=== PATIENT | male | born 1985 | race Caucasian/White ===

== ENCOUNTER 2018-01-29 22:18 | Emergency (ER) | payer OTHER ==
[~2018-01-29] VITALS: Ht 167.6 cm; Wt 89.3 kg
[~2018-01-29 22:18] MED LIST: ALBU8.5H8 IH; GUAI120015 PO; METO-292 PO; POTA20TA19 PO; PSEU-259 PO
[2018-01-29 22:20] VITALS: BP 128/62
[2018-01-29] MEDS ORDERED: LORazepam 2 mg/ml vial IM ONE (22:45)
== END 2018-01-29 23:15 | disposition home or self-care (01) ==
LOC: ER 22:18
DX: F41.9 Anxiety disorder, unspecified (principal); I10 Essential (primary) hypertension; F32.9 Major depressive disorder, single episode, unspecified; K21.9 Gastro-esophageal reflux disease without esophagitis; Z88.5 Allergy status to narcotic agent
CPT/HCPCS: 96372; 99284; J2060

== ENCOUNTER 2018-02-10 17:29 | Emergency (ER) | payer OTHER ==
[~2018-02-10] VITALS: Ht 177.8 cm; Wt 90.0 kg
[2018-02-10 17:31] VITALS: BP 148/78
[2018-02-10] MEDS ORDERED: LORazepam 2 mg/ml vial IM ONE (17:40)
== END 2018-02-10 18:29 | disposition home or self-care (01) ==
LOC: ER 17:29
DX: F41.9 Anxiety disorder, unspecified (principal); I10 Essential (primary) hypertension; K21.9 Gastro-esophageal reflux disease without esophagitis; F17.200 Nicotine dependence, unspecified, uncomplicated; F12.10 Cannabis abuse, uncomplicated; F41.0 Panic disorder [episodic paroxysmal anxiety]; F32.9 Major depressive disorder, single episode, unspecified; Z88.5 Allergy status to narcotic agent
CPT/HCPCS: 93005; 96372; 99284; J2060

== ENCOUNTER 2018-04-10 21:47 | Emergency (ER) | payer OTHER ==
[~2018-04-10] VITALS: Ht 177.8 cm; Wt 87.2 kg
[2018-04-10 21:52] VITALS: BP 135/84
== END 2018-04-11 00:02 | disposition home or self-care (01) ==
LOC: ER 21:47
DX: F41.9 Anxiety disorder, unspecified (principal); F32.9 Major depressive disorder, single episode, unspecified; I10 Essential (primary) hypertension; K21.9 Gastro-esophageal reflux disease without esophagitis; F12.10 Cannabis abuse, uncomplicated; Z88.5 Allergy status to narcotic agent; Z79.899 Other long term (current) drug therapy
CPT/HCPCS: 99284

== ENCOUNTER 2018-08-03 05:07 | Emergency (ER) | payer OTHER ==
[~2018-08-03] VITALS: Ht 177.8 cm; Wt 85.5 kg
[2018-08-03 05:12] VITALS: BP 127/72
[2018-08-03] MEDS ORDERED: ondansetron 4mg rapidly disintigrating tab PO ONE (05:25)
[2018-08-03] MEDS ORDERED: ONDA4TAB9 PO (05:25)
[2018-08-03] MEDS ORDERED: HYDROcodone/acetaminophen 10/325mg tab PO ONE (05:25)
[2018-08-03] MEDS ORDERED: HYDR-565 PO (05:25)
== END 2018-08-03 05:43 | disposition home or self-care (01) ==
LOC: ER 05:07
DX: K03.81 Cracked tooth (principal); K08.89 Other specified disorders of teeth and supporting structures; I10 Essential (primary) hypertension; K21.9 Gastro-esophageal reflux disease without esophagitis; F12.90 Cannabis use, unspecified, uncomplicated; Z88.6 Allergy status to analgesic agent
CPT/HCPCS: 99283

== ENCOUNTER 2018-08-03 19:37 | Emergency (ER) | payer OTHER ==
[~2018-08-03] VITALS: Ht 177.8 cm; Wt 85.9 kg
[~2018-08-03 19:37] MED LIST changes: +HYDR-565 PO; +ONDA4TAB9 PO
[2018-08-03 19:43] VITALS: BP 123/83
[2018-08-03] MEDS ORDERED: LORazepam 2 mg/ml vial IM ONE (20:20)
== END 2018-08-03 20:43 | disposition home or self-care (01) ==
LOC: ER 19:37
DX: F41.9 Anxiety disorder, unspecified (principal); K08.89 Other specified disorders of teeth and supporting structures; I10 Essential (primary) hypertension; K21.9 Gastro-esophageal reflux disease without esophagitis; F32.9 Major depressive disorder, single episode, unspecified; F12.90 Cannabis use, unspecified, uncomplicated; Z88.5 Allergy status to narcotic agent; Z79.899 Other long term (current) drug therapy
CPT/HCPCS: 96372; 99284; J2060

== ENCOUNTER 2018-09-28 17:12 | Emergency (ER) | payer OTHER ==
[~2018-09-28] VITALS: Ht 177.8 cm; Wt 87.7 kg
[~2018-09-28 17:12] MED LIST changes: +ALBU18HF2 INH; +BENZ-16 PO; -HYDR-565 PO; -ONDA4TAB9 PO
[2018-09-28 17:29] VITALS: BP 124/67
== END 2018-09-28 17:58 | disposition home or self-care (01) ==
LOC: ER 17:13
DX: F41.9 Anxiety disorder, unspecified (principal); F17.200 Nicotine dependence, unspecified, uncomplicated; I10 Essential (primary) hypertension; K21.9 Gastro-esophageal reflux disease without esophagitis; F12.90 Cannabis use, unspecified, uncomplicated; Z88.6 Allergy status to analgesic agent
CPT/HCPCS: 99284

== ENCOUNTER 2018-09-30 20:07 | Emergency (ER) | payer OTHER ==
[~2018-09-30] VITALS: Ht 177.8 cm; Wt 87.7 kg
[2018-09-30] MEDS ORDERED: LORazepam 2 mg/ml vial IM ONE (21:50)
[2018-09-30 22:06] VITALS: BP 128/76
== END 2018-09-30 22:07 | disposition home or self-care (01) ==
LOC: ER 20:08
DX: F41.9 Anxiety disorder, unspecified (principal); I10 Essential (primary) hypertension; K21.9 Gastro-esophageal reflux disease without esophagitis; G89.29 Other chronic pain; F32.9 Major depressive disorder, single episode, unspecified; F12.90 Cannabis use, unspecified, uncomplicated; Z88.5 Allergy status to narcotic agent; Z88.1 Allergy status to other antibiotic agents; Z79.899 Other long term (current) drug therapy
CPT/HCPCS: 96372; 99284; J2060

== ENCOUNTER 2018-10-25 22:10 | Emergency (ER) | payer OTHER ==
[~2018-10-25] VITALS: Ht 177.8 cm; Wt 87.0 kg
[~2018-10-25 22:10] MED LIST changes: -BENZ-16 PO
[2018-10-25 22:12] VITALS: BP 143/86
[2018-10-25] MEDS ORDERED: LORazepam 2 mg/ml vial IM ONE (22:55)
== END 2018-10-25 23:28 | disposition home or self-care (01) ==
LOC: ER 22:11
DX: F41.0 Panic disorder [episodic paroxysmal anxiety] (principal); F41.9 Anxiety disorder, unspecified; F32.9 Major depressive disorder, single episode, unspecified; I10 Essential (primary) hypertension; K21.9 Gastro-esophageal reflux disease without esophagitis; G89.29 Other chronic pain; F12.90 Cannabis use, unspecified, uncomplicated; Z88.1 Allergy status to other antibiotic agents; Z88.5 Allergy status to narcotic agent; Z79.899 Other long term (current) drug therapy
CPT/HCPCS: 96372; 99284; J2060

== ENCOUNTER 2018-10-30 22:06 | Emergency (ER) | payer OTHER ==
[~2018-10-30] VITALS: Ht 177.8 cm; Wt 87.2 kg
[2018-10-30 22:14] VITALS: BP 127/81
[2018-10-30] MEDS ORDERED: LORazepam 2 mg/ml vial IM ONE (23:30)
== END 2018-10-30 23:44 | disposition home or self-care (01) ==
LOC: ER 22:06
DX: F41.9 Anxiety disorder, unspecified (principal); I10 Essential (primary) hypertension; K21.9 Gastro-esophageal reflux disease without esophagitis; G89.29 Other chronic pain; F32.9 Major depressive disorder, single episode, unspecified; F12.90 Cannabis use, unspecified, uncomplicated; Z88.5 Allergy status to narcotic agent; Z88.8 Allergy status to other drugs, medicaments and biological substances; Z79.899 Other long term (current) drug therapy
CPT/HCPCS: 96372; 99284; J2060

== ENCOUNTER 2018-11-02 20:57 | Emergency (ER) | payer OTHER ==
[~2018-11-02] VITALS: Ht 177.8 cm; Wt 87.0 kg
[2018-11-02] MEDS ORDERED: haloperidol lactate 5mg/ml inj IM ONE (22:35)
[2018-11-02] MEDS ORDERED: LORazepam 2 mg/ml vial IM ONE (23:20)
[2018-11-02] MEDS ORDERED: diphenhydrAMINE 25mg capsule PO ONE (23:25)
[2018-11-03 00:02] VITALS: BP 120/71
== END 2018-11-03 00:04 | disposition home or self-care (01) ==
LOC: ER 20:58
DX: F41.9 Anxiety disorder, unspecified (principal); F43.10 Post-traumatic stress disorder, unspecified; I10 Essential (primary) hypertension; K21.9 Gastro-esophageal reflux disease without esophagitis; G89.29 Other chronic pain; F32.9 Major depressive disorder, single episode, unspecified; F12.90 Cannabis use, unspecified, uncomplicated; Z88.3 Allergy status to other anti-infective agents; Z88.5 Allergy status to narcotic agent
CPT/HCPCS: 96372; 99284; J1630; J2060; Q0163

== ENCOUNTER 2018-12-19 01:31 | Emergency (ER) | payer OTHER ==
[~2018-12-19] VITALS: Ht 177.8 cm; Wt 83.0 kg
[2018-12-19 01:35] VITALS: BP 122/80
== END 2018-12-19 03:01 | disposition left against medical advice (07) ==
LOC: ER 01:32
DX: F41.9 Anxiety disorder, unspecified (principal); Z53.21 Procedure and treatment not carried out due to patient leaving prior to being seen by health care provider

== ENCOUNTER 2019-01-29 09:33 | Emergency (ER) | payer OTHER ==
[~2019-01-29] VITALS: Ht 177.8 cm; Wt 87.7 kg
[2019-01-29 11:22] VITALS: BP 115/71
== END 2019-01-29 11:06 | disposition home or self-care (01) ==
LOC: ER 09:33
DX: R07.89 Other chest pain (principal); I10 Essential (primary) hypertension; K21.9 Gastro-esophageal reflux disease without esophagitis; G89.29 Other chronic pain; F12.90 Cannabis use, unspecified, uncomplicated; Z88.6 Allergy status to analgesic agent; Z88.1 Allergy status to other antibiotic agents
CPT/HCPCS: 71045; 93005; 99283; 99284

== ENCOUNTER 2019-03-11 08:01 | Emergency (ER) | payer OTHER ==
[~2019-03-11] VITALS: Ht 177.8 cm; Wt 87.3 kg
--- NOTE | 2019-03-11 08:20 | NUR ---
Brought back to Bed 23 from Triage due to Anxiety. Seen by Willie REAL, who has cared for the patient in the past. Ativan 1 mg IM ordered along with 1 mg PO. Administered as ordered. Patient uncooperative with the admission process. Stated "I can't do this, answer all these questions."
[2019-03-11] MEDS ORDERED: LORazepam 1 MG tablet PO ONE (08:50)
[2019-03-11] MEDS ORDERED: LORazepam 2 mg/ml vial IM ONE (08:50)
--- NOTE | 2019-03-11 09:40 | NUR ---
Patient discharged to home after medication administration. Stated he felt better. [facility]
[2019-03-11 09:52] VITALS: BP 116/72
== END 2019-03-11 09:40 | disposition home or self-care (01) ==
LOC: ER 08:01
DX: F41.9 Anxiety disorder, unspecified (principal); F32.9 Major depressive disorder, single episode, unspecified; I10 Essential (primary) hypertension; K21.9 Gastro-esophageal reflux disease without esophagitis; G89.29 Other chronic pain; F12.90 Cannabis use, unspecified, uncomplicated; Z88.6 Allergy status to analgesic agent; Z88.1 Allergy status to other antibiotic agents
CPT/HCPCS: 96372; 99284; J2060

== ENCOUNTER 2019-05-25 19:37 | Emergency (ER) | payer OTHER ==
[~2019-05-25] VITALS: Ht 177.8 cm; Wt 87.0 kg
[2019-05-25] MEDS ORDERED: famotidine 20mg tablet PO ONE (20:15)
[2019-05-25] MEDS ORDERED: mag hydrox/Alum hydrox/simeth 30ml oral suspension PO ONE (20:15)
[2019-05-25] MEDS ORDERED: LIDOcaine Viscous 15ml cup PO ONE (20:15)
--- NOTE | 2019-05-25 20:43 | NUR ---
Patient resting comfortably on [facility], just back from CT.
--- NOTE | 2019-05-25 21:19 | NUR ---
Still resting comfortably on gurney, pending CT results.
[2019-05-25 21:37] VITALS: BP 116/77
== END 2019-05-25 21:38 | disposition home or self-care (01) ==
LOC: ER 19:38
DX: R10.84 Generalized abdominal pain (principal); I10 Essential (primary) hypertension; K21.9 Gastro-esophageal reflux disease without esophagitis; G89.29 Other chronic pain; F41.9 Anxiety disorder, unspecified; F32.9 Major depressive disorder, single episode, unspecified; F12.90 Cannabis use, unspecified, uncomplicated; Z88.5 Allergy status to narcotic agent; Z88.1 Allergy status to other antibiotic agents; Z79.899 Other long term (current) drug therapy
CPT/HCPCS: 74176; 93005; 99284

== ENCOUNTER 2019-07-18 00:24 | Emergency (ER) | payer OTHER ==
[~2019-07-18] VITALS: Ht 177.8 cm; Wt 87.7 kg
[2019-07-18 00:34] VITALS: BP 114/79
== END 2019-07-18 02:53 | disposition home or self-care (01) ==
LOC: ER 00:26
DX: S06.0X0A Concussion without loss of consciousness, initial encounter (principal); S01.81XA Laceration without foreign body of other part of head, initial encounter; R47.81 Slurred speech; I10 Essential (primary) hypertension; K21.9 Gastro-esophageal reflux disease without esophagitis; G89.29 Other chronic pain; F41.9 Anxiety disorder, unspecified; F32.9 Major depressive disorder, single episode, unspecified; F12.90 Cannabis use, unspecified, uncomplicated; Z88.1 Allergy status to other antibiotic agents; Z88.6 Allergy status to analgesic agent; Z79.899 Other long term (current) drug therapy; Z87.891 Personal history of nicotine dependence; W22.8XXA Striking against or struck by other objects, initial encounter; Y93.89 Activity, other specified; Y92.89 Other specified places as the place of occurrence of the external cause; Y99.8 Other external cause status
CPT/HCPCS: 99281

== ENCOUNTER 2019-11-19 00:30 | Emergency (ER) | payer OTHER ==
[~2019-11-19] VITALS: Ht 177.8 cm; Wt 87.7 kg
[2019-11-19 01:55] VITALS: BP 127/66
== END 2019-11-19 01:57 | disposition home or self-care (01) ==
LOC: ER 00:31
DX: F41.9 Anxiety disorder, unspecified (principal); I10 Essential (primary) hypertension; K21.9 Gastro-esophageal reflux disease without esophagitis; G89.29 Other chronic pain; F12.90 Cannabis use, unspecified, uncomplicated; F10.99 Alcohol use, unspecified with unspecified alcohol-induced disorder; Z88.1 Allergy status to other antibiotic agents; Z88.5 Allergy status to narcotic agent; Z79.899 Other long term (current) drug therapy; Y90.9 Presence of alcohol in blood, level not specified
CPT/HCPCS: 93005; 99284

== ENCOUNTER 2019-11-29 20:13 | Emergency (ER) | payer OTHER ==
[~2019-11-29] VITALS: Ht 177.8 cm; Wt 87.4 kg
--- NOTE | 2019-11-29 20:56 | NUR ---
Dr. Walker is with the patient at this time.
[2019-11-29] MEDS ORDERED: proparacaine 0.5% ophthalmic drops 15ml EACHEYE ONE (21:00)
[2019-11-29] MEDS ORDERED: erythromycin ophthalmic ointment 1gm tube LEFTEYE ONE (21:25)
[2019-11-29] MEDS ORDERED: TETanus/Pertussis (Acell)/Diphther VAC/PF (Tdap-Adult) 0.5ml syringe IMVAC ONE (21:25)
[2019-11-29 21:57] VITALS: BP 124/78
== END 2019-11-29 21:58 | disposition home or self-care (01) ==
LOC: ER 20:14
DX: S05.02XA Injury of conjunctiva and corneal abrasion without foreign body, left eye, initial encounter (principal); I10 Essential (primary) hypertension; K21.9 Gastro-esophageal reflux disease without esophagitis; G89.29 Other chronic pain; F12.90 Cannabis use, unspecified, uncomplicated; Z88.3 Allergy status to other anti-infective agents; Z88.5 Allergy status to narcotic agent; X58.XXXA Exposure to other specified factors, initial encounter; Y93.89 Activity, other specified; Y92.89 Other specified places as the place of occurrence of the external cause; Y99.9 Unspecified external cause status
CPT/HCPCS: 90471; 90715; 99283

== ENCOUNTER 2020-07-22 16:08 | Emergency (ER) | payer OTHER ==
[~2020-07-22] VITALS: Ht 177.8 cm; Wt 88.0 kg
[2020-07-22] MEDS ORDERED: LORazepam 2 mg/ml vial IM ONE (17:45)
[2020-07-22 18:57] VITALS: BP 110/70
== END 2020-07-22 18:58 | disposition home or self-care (01) ==
LOC: ER 16:09
DX: F41.0 Panic disorder [episodic paroxysmal anxiety] (principal); F43.10 Post-traumatic stress disorder, unspecified; R00.1 Bradycardia, unspecified; I10 Essential (primary) hypertension; K21.9 Gastro-esophageal reflux disease without esophagitis; G89.29 Other chronic pain; F32.9 Major depressive disorder, single episode, unspecified; F12.90 Cannabis use, unspecified, uncomplicated; Z87.891 Personal history of nicotine dependence; Z88.5 Allergy status to narcotic agent; Z88.1 Allergy status to other antibiotic agents; Z79.899 Other long term (current) drug therapy
CPT/HCPCS: 96372; 99285; J2060

== ENCOUNTER 2020-12-25 22:12 | Emergency (ER) | payer OTHER ==
[~2020-12-25] VITALS: Ht 177.8 cm; Wt 87.7 kg
[2020-12-25] MEDS ORDERED: LORazepam 2 mg/ml vial IM ONE (23:20)
[2020-12-25 23:41] VITALS: BP 142/76
== END 2020-12-25 23:42 | disposition home or self-care (01) ==
LOC: ER 22:13
DX: F41.9 Anxiety disorder, unspecified (principal); R42 Dizziness and giddiness; R06.02 Shortness of breath; M25.512 Pain in left shoulder; R07.89 Other chest pain; I10 Essential (primary) hypertension; K21.9 Gastro-esophageal reflux disease without esophagitis; G89.29 Other chronic pain; F32.9 Major depressive disorder, single episode, unspecified; Z72.89 Other problems related to lifestyle; Z88.1 Allergy status to other antibiotic agents; Z88.5 Allergy status to narcotic agent; Z79.899 Other long term (current) drug therapy
CPT/HCPCS: 93005; 96372; 99283; J2060

== ENCOUNTER 2021-01-19 00:30 | Emergency (ER) | payer OTHER ==
[~2021-01-19] VITALS: Ht 172.7 cm; Wt 72.0 kg
[2021-01-19 00:55] VITALS: BP 108/72
--- NOTE | 2021-01-19 01:53 | NUR ---
patient reports feeling much better and wants to go home
--- NOTE | 2021-01-19 02:40 | NUR ---
pt got tired of waiting and left
== END 2021-01-19 02:50 | disposition left against medical advice (07) ==
LOC: ER 00:31
DX: F41.9 Anxiety disorder, unspecified (principal); Z53.21 Procedure and treatment not carried out due to patient leaving prior to being seen by health care provider

== ENCOUNTER 2021-02-16 20:31 | Emergency (ER) | payer OTHER ==
[~2021-02-16] VITALS: Ht 177.8 cm; Wt 87.7 kg
[2021-02-16 22:44] VITALS: BP 100/56
[2021-02-16] MEDS ORDERED: diazepam inj 5 MG/ML inj. IM ONE (23:20)
== END 2021-02-16 23:49 | disposition home or self-care (01) ==
LOC: ER 20:32
DX: M54.31 Sciatica, right side (principal); R53.1 Weakness; I10 Essential (primary) hypertension; K21.9 Gastro-esophageal reflux disease without esophagitis; G89.29 Other chronic pain; F41.9 Anxiety disorder, unspecified; F32.9 Major depressive disorder, single episode, unspecified; Z72.89 Other problems related to lifestyle; Z88.1 Allergy status to other antibiotic agents; Z88.5 Allergy status to narcotic agent; Z79.899 Other long term (current) drug therapy
CPT/HCPCS: 96372; 99283; J3360

== ENCOUNTER 2021-04-01 01:45 | Emergency (ER) | payer OTHER ==
[~2021-04-01] VITALS: Ht 177.8 cm; Wt 89.4 kg
[2021-04-01] MEDS ORDERED: LORazepam 2 mg/ml vial IM ONE (02:35)
--- NOTE | 2021-04-01 03:06 | NUR ---
PATIENT NOT SEEN BY PRIMARY NURSE. THIS RN FOLLOWED UP WITH MD ORDER FOR ATIVAN. PATIENT WAS COOPERATIVE WITH ATIVAN IM. PATIENT BEING DISCHARGED HOME WITH GIRLFRIEND DRIVING. PATIENT IS FEELING BETTER, LESS ANXIETY.
[2021-04-01 03:08] VITALS: BP 128/74
== END 2021-04-01 03:10 | disposition home or self-care (01) ==
LOC: ER 01:46
DX: F41.9 Anxiety disorder, unspecified (principal); F43.10 Post-traumatic stress disorder, unspecified; I10 Essential (primary) hypertension; K21.9 Gastro-esophageal reflux disease without esophagitis; G89.29 Other chronic pain; F32.9 Major depressive disorder, single episode, unspecified; Z72.89 Other problems related to lifestyle; Z88.1 Allergy status to other antibiotic agents; Z88.5 Allergy status to narcotic agent; Z79.899 Other long term (current) drug therapy
CPT/HCPCS: 93005; 96372; 99283; J2060

== ENCOUNTER 2021-06-03 07:22 | Emergency (ER) | payer OTHER ==
[~2021-06-03] VITALS: Ht 177.8 cm; Wt 83.5 kg
[2021-06-03] MEDS ORDERED: LORazepam 2 mg/ml vial IM ONE (08:55)
[2021-06-03 09:48] VITALS: BP 116/72
== END 2021-06-03 09:50 | disposition home or self-care (01) ==
LOC: ER 07:23
DX: F41.9 Anxiety disorder, unspecified (principal); F43.10 Post-traumatic stress disorder, unspecified; I10 Essential (primary) hypertension; K21.9 Gastro-esophageal reflux disease without esophagitis; G89.29 Other chronic pain; F32.9 Major depressive disorder, single episode, unspecified; Z72.89 Other problems related to lifestyle; Z88.1 Allergy status to other antibiotic agents; Z88.6 Allergy status to analgesic agent; Z88.8 Allergy status to other drugs, medicaments and biological substances; Z79.899 Other long term (current) drug therapy
CPT/HCPCS: 93005; 96372; 99283; J2060

== ENCOUNTER 2021-06-25 21:06 | Emergency (ER) | payer OTHER ==
[~2021-06-25] VITALS: Ht 177.8 cm; Wt 90.9 kg
[~2021-06-25 21:06] MED LIST changes: +ALBU8.5H17 IH; -ALBU8.5H8 IH
--- NOTE | 2021-06-25 23:38 | NUR ---
pt states hasnt had ativan in 4 days. pt states may be at risk of seizure. placed pt in seizure precautions with padded rails, both rails up and bed in low position.
[2021-06-25] MEDS ORDERED: LORazepam 2 mg/ml vial IM ONE (23:40)
[2021-06-25] MEDS ORDERED: LORA2VIA30 IM (23:48)
[2021-06-25 23:58] VITALS: BP 121/79
== END 2021-06-25 23:56 | disposition home or self-care (01) ==
LOC: ER 21:07
DX: F41.0 Panic disorder [episodic paroxysmal anxiety] (principal); I10 Essential (primary) hypertension; K21.9 Gastro-esophageal reflux disease without esophagitis; G89.29 Other chronic pain; F32.9 Major depressive disorder, single episode, unspecified; Z88.1 Allergy status to other antibiotic agents; Z88.5 Allergy status to narcotic agent; Z79.899 Other long term (current) drug therapy
CPT/HCPCS: 93005; 96372; 99283; J2060

== ENCOUNTER 2021-06-28 16:13 | Emergency (ER) | payer OTHER ==
[~2021-06-28] VITALS: Ht 177.8 cm; Wt 85.0 kg
[~2021-06-28 16:13] MED LIST changes: +LORA2VIA30 IM
[2021-06-28 17:02] VITALS: BP 110/66
[2021-06-28] MEDS ORDERED: LORazepam 2 mg/ml vial IM ONE (17:10)
== END 2021-06-28 17:25 | disposition home or self-care (01) ==
LOC: ER 16:14
DX: F41.9 Anxiety disorder, unspecified (principal); I10 Essential (primary) hypertension; K21.9 Gastro-esophageal reflux disease without esophagitis; G89.29 Other chronic pain; F32.9 Major depressive disorder, single episode, unspecified; F17.200 Nicotine dependence, unspecified, uncomplicated; Z72.89 Other problems related to lifestyle; Z88.1 Allergy status to other antibiotic agents; Z88.5 Allergy status to narcotic agent; Z88.8 Allergy status to other drugs, medicaments and biological substances; Z79.899 Other long term (current) drug therapy
CPT/HCPCS: 96372; 99283; J2060

== ENCOUNTER 2021-09-12 07:57 | Emergency (ER) | payer OTHER ==
[~2021-09-12] VITALS: Ht 177.8 cm; Wt 91.6 kg
[~2021-09-12 07:57] MED LIST changes: +POTA-207 PO; -POTA20TA19 PO
[2021-09-12 08:07] VITALS: BP 118/82
== END 2021-09-12 10:05 | disposition left against medical advice (07) ==
LOC: ER 07:57
DX: F41.9 Anxiety disorder, unspecified (principal); Z53.21 Procedure and treatment not carried out due to patient leaving prior to being seen by health care provider
CPT/HCPCS: 93005

== ENCOUNTER 2021-10-18 06:03 | Emergency (ER) | payer OTHER ==
[~2021-10-18] VITALS: Ht 177.8 cm; Wt 88.6 kg
[2021-10-18 06:05] VITALS: BP 116/76
--- NOTE | 2021-10-18 06:27 | NUR ---
DR CANSECO VERBALIZED ORDER FOR 2MG PO ATIVAN
[2021-10-18] MEDS ORDERED: LORazepam 1 MG tablet PO PRN (06:30)
[2021-10-18] MEDS ORDERED: acetaminophen 325mg tablet PO ONE (07:35)
[2021-10-18] MEDS ORDERED: ibuprofen tablet 400 MG TABLET PO ONE (07:35)
[2021-10-18 07:45] LABS: BASOPHILS % (AUTO) 0.4 % (0-1); EOSINOPHILS # (AUTO) 0.1 X10'3 (0-0.9); EOSINOPHILS % (AUTO) 1.7 % (0-6); HEMATOCRIT 46.1 % (42.0-52.0); LYMPHOCYTES # (AUTO) 1.2 X10'3 (1.1-4.8); MEAN CORPUSCULAR HEMOGLOBIN 28.5 PG (27.0-31.0); MEAN CORPUSCULAR HGB CONC 34.6 g/dL (33.0-36.5); MEAN CORPUSCULAR VOLUME 82.4 FL (78-98); MEAN PLATELET VOLUME 7.8 FL (7.4-10.4); MONOCYTES # (AUTO) 0.5 X10'3 (0-0.9); MONOCYTES % (AUTO) 9.5 % (2-12); NEUTROPHILS # (AUTO) 3.3 X10'3 (1.8-7.7); NEUTROPHILS % (AUTO) 65.4 % (42-75); PLATELET COUNT 207 X10'3 (140-440); RED BLOOD COUNT 5.59 X10'6 (4.70-6.10); RED CELL DISTRIBUTION WIDTH 13.4 % (11.5-14.5); WHITE BLOOD COUNT 5.1 X10'3 (4.5-11.0)
[2021-10-18 07:59] LABS: ALANINE AMINOTRANSFERASE 74 U/L (12-78); ALBUMIN 3.7 G/DL (3.4-5.0); ALKALINE PHOSPHATASE 72 IU/L (46-116); ANION GAP 14 (8-16); ASPARTATE AMINO TRANSFERASE 33 U/L (10-37); BILIRUBIN,TOTAL 0.2 MG/DL (0.1-1.0); BLOOD UREA NITROGEN 8 MG/DL (7-18); CALCIUM 8.5 MG/DL (8.5-10.1); CHLORIDE 105 MMOL/L (99-107); CREATININE 0.89 MG/DL (0.60-1.10); GLUCOSE 126 MG/DL (70-104); POTASSIUM 3.3 MMOL/L (3.5-5.1); SODIUM 138 MMOL/L (135-145); TOTAL CARBON DIOXIDE 18.9 MMOL/L (24-32); TOTAL PROTEIN 7.4 G/DL (6.4-8.2); eGFR > 90 ML/MIN
== END 2021-10-18 08:52 | disposition home or self-care (01) ==
LOC: ER 06:03
DX: F41.9 Anxiety disorder, unspecified (principal); M54.89 Other dorsalgia; R07.89 Other chest pain; I10 Essential (primary) hypertension; K21.9 Gastro-esophageal reflux disease without esophagitis; G89.29 Other chronic pain; F32.9 Major depressive disorder, single episode, unspecified; Z72.89 Other problems related to lifestyle; Z88.1 Allergy status to other antibiotic agents; Z88.8 Allergy status to other drugs, medicaments and biological substances; Z88.5 Allergy status to narcotic agent; Z79.899 Other long term (current) drug therapy
CPT/HCPCS: 36415; 71045; 80053; 84484; 85025; 93005; 99285

== ENCOUNTER 2022-01-23 02:46 | Emergency (ER) | payer OTHER ==
--- NOTE | 2022-01-23 02:56 | NUR ---
PATIENT WALKS IN THE er WITH COMPLAINTS OF CHEST PAIN THAT STARTED ABOUT 30 MINUTES AGO, HE STATES THAT HE STARTED WITH HAVING ANXIETY THEN HYPERVENTALIATED SHORTLY AFTER THAT THE CHEST PAIN STARTED. HE HAVE ALREADY TAKEN 2 MG OF ATIVAN. HE I ALERT AMBULATORY. HE CURRENTLY PLACED ON THE CARDIAC MONTIOR.
[2022-01-23] MEDS: LORazepam 2 mg/ml vial IM ONE (03:26)
[2022-01-23 03:34] VITALS: BP 112/81
== END 2022-01-23 03:35 | disposition home or self-care (01) ==
LOC: ER 02:47
DX: F41.9 Anxiety disorder, unspecified (principal); F43.10 Post-traumatic stress disorder, unspecified; R07.89 Other chest pain; I10 Essential (primary) hypertension; K21.9 Gastro-esophageal reflux disease without esophagitis; G89.29 Other chronic pain; F32.A Depression, unspecified; Z72.89 Other problems related to lifestyle; Z88.1 Allergy status to other antibiotic agents; Z88.5 Allergy status to narcotic agent; Z88.8 Allergy status to other drugs, medicaments and biological substances; Z79.899 Other long term (current) drug therapy
CPT/HCPCS: 93005; 96372; 99283; J2060

== ENCOUNTER 2022-03-19 23:10 | Emergency (ER) | payer OTHER ==
[~2022-03-19] VITALS: Ht 177.8 cm; Wt 87.7 kg
[2022-03-19 23:53] LABS: BASOPHILS % (AUTO) 0.3 % (0-1); EOSINOPHILS # (AUTO) 0.3 X10'3 (0-0.9); EOSINOPHILS % (AUTO) 3.3 % (0-6); HEMOGLOBIN 16.6 g/dl (14.0-17.9); LYMPHOCYTES # (AUTO) 2.6 X10'3 (1.1-4.8); LYMPHOCYTES % (AUTO) 33.5 % (21-51); MEAN CORPUSCULAR HEMOGLOBIN 28.6 PG (27.0-31.0); MEAN CORPUSCULAR HGB CONC 34.6 g/dL (33.0-36.5); MEAN CORPUSCULAR VOLUME 82.6 FL (78-98); MEAN PLATELET VOLUME 7.9 FL (7.4-10.4); MONOCYTES # (AUTO) 0.5 X10'3 (0-0.9); MONOCYTES % (AUTO) 7.1 % (2-12); NEUTROPHILS # (AUTO) 4.3 X10'3 (1.8-7.7); NEUTROPHILS % (AUTO) 55.8 % (42-75); PLATELET COUNT 197 X10'3 (140-440); RED BLOOD COUNT 5.81 X10'6 (4.70-6.10); RED CELL DISTRIBUTION WIDTH 14.1 % (11.5-14.5); WHITE BLOOD COUNT 7.6 X10'3 (4.5-11.0)
[2022-03-20 00:01] LABS: ALANINE AMINOTRANSFERASE 38 U/L (12-78); ALBUMIN 3.8 G/DL (3.4-5.0); ALBUMIN/GLOBULIN RATIO 1.1 (1.1-1.5); ALKALINE PHOSPHATASE 77 IU/L (46-116); ANION GAP 9 (8-16); ASPARTATE AMINO TRANSFERASE 15 U/L (10-37); BILIRUBIN,TOTAL 0.2 MG/DL (0.1-1.0); BLOOD UREA NITROGEN 16 MG/DL (7-18); BUN/CREATININE RATIO 14.8 (5.4-32.0); CALCIUM 8.7 MG/DL (8.5-10.1); CHLORIDE 106 MMOL/L (99-107); CREATININE 1.08 MG/DL (0.60-1.10); GLUCOSE 113 MG/DL (70-104); POTASSIUM 3.4 MMOL/L (3.5-5.1); SODIUM 138 MMOL/L (135-145); TOTAL PROTEIN 7.3 G/DL (6.4-8.2); eGFR 77 ML/MIN
[2022-03-20] MEDS ORDERED: diphenhydrAMINE 25mg capsule PO ONE (02:10)
[2022-03-20 02:17] VITALS: BP 117/82
== END 2022-03-20 02:19 | disposition home or self-care (01) ==
LOC: ER 23:10
DX: F41.9 Anxiety disorder, unspecified (principal); I10 Essential (primary) hypertension; K21.9 Gastro-esophageal reflux disease without esophagitis; F32.A Depression, unspecified; Z88.5 Allergy status to narcotic agent; Z88.1 Allergy status to other antibiotic agents; Z88.8 Allergy status to other drugs, medicaments and biological substances; Z79.899 Other long term (current) drug therapy
CPT/HCPCS: 36415; 71045; 80053; 83880; 84484; 85025; 93005; 99285; Q0163

== ENCOUNTER 2022-09-21 22:18 | Emergency (ER) | payer OTHER ==
[~2022-09-21] VITALS: Ht 177.8 cm; Wt 92.7 kg
--- NOTE | 2022-09-21 22:56 | NUR ---
Dr. Otoole bedside assessing patient.
[2022-09-21 23:26] LABS: BASOPHILS % (AUTO) 0.4 % (0-1); EOSINOPHILS # (AUTO) 0.2 X10'3 (0-0.9); EOSINOPHILS % (AUTO) 3.1 % (0-6); HEMATOCRIT 45.9 % (42.0-52.0); HEMOGLOBIN 15.8 g/dl (14.0-17.9); LYMPHOCYTES # (AUTO) 2.2 X10'3 (1.1-4.8); LYMPHOCYTES % (AUTO) 29.2 % (21-51); MEAN CORPUSCULAR HEMOGLOBIN 28.3 PG (27.0-31.0); MEAN CORPUSCULAR HGB CONC 34.4 g/dL (33.0-36.5); MEAN CORPUSCULAR VOLUME 82.3 FL (78-98); MEAN PLATELET VOLUME 8.4 FL (7.4-10.4); MONOCYTES # (AUTO) 0.7 X10'3 (0-0.9); NEUTROPHILS # (AUTO) 4.5 X10'3 (1.8-7.7); NEUTROPHILS % (AUTO) 58.3 % (42-75); PLATELET COUNT 209 X10'3 (140-440); RED BLOOD COUNT 5.57 X10'6 (4.70-6.10); RED CELL DISTRIBUTION WIDTH 13.5 % (11.5-14.5); WHITE BLOOD COUNT 7.6 X10'3 (4.5-11.0)
--- NOTE | 2022-09-21 23:27 | NUR ---
Pt up to restroom. Ambulates independently with steady gait.
[2022-09-21 23:29] LABS: ALANINE AMINOTRANSFERASE 40 U/L (12-78); ALBUMIN 3.6 G/DL (3.4-5.0); ALKALINE PHOSPHATASE 78 IU/L (46-116); ANION GAP 10 (8-16); ASPARTATE AMINO TRANSFERASE 21 U/L (10-37); BILIRUBIN,TOTAL 0.2 MG/DL (0.1-1.0); BLOOD UREA NITROGEN 16 MG/DL (7-18); BUN/CREATININE RATIO 13.8 (5.4-32.0); CALCIUM 8.9 MG/DL (8.5-10.1); CHLORIDE 106 MMOL/L (99-107); CREATININE 1.16 MG/DL (0.60-1.10); GLUCOSE 109 MG/DL (70-104); POTASSIUM 3.4 MMOL/L (3.5-5.1); SODIUM 139 MMOL/L (135-145); TOTAL PROTEIN 7.1 G/DL (6.4-8.2); eGFR 71 ML/MIN
[2022-09-21 23:55] LABS: URINE AMPHETAMINE SCREEN NEGATIVE (Neg); URINE BARBITUATE SCREEN NEGATIVE (Neg); URINE BENZODIAZEPINES SCREEN NEGATIVE (Neg); URINE CANNABINOID SCREEN NEGATIVE (Neg); URINE COCAINE SCREEN NEGATIVE (Neg); URINE METHADONE SCREEN NEGATIVE (Neg); URINE OPIATE SCREEN NEGATIVE (Neg); URINE PHENCYCLIDINE SCREEN NEGATIVE (Neg)
[2022-09-22 00:18] VITALS: BP 126/89
== END 2022-09-22 00:21 | disposition home or self-care (01) ==
LOC: ER 22:19
DX: R06.02 Shortness of breath (principal); I10 Essential (primary) hypertension; K21.9 Gastro-esophageal reflux disease without esophagitis; G89.29 Other chronic pain; Z88.1 Allergy status to other antibiotic agents; Z88.5 Allergy status to narcotic agent; Z88.8 Allergy status to other drugs, medicaments and biological substances
CPT/HCPCS: 36415; 71045; 80053; 80305; 83880; 84484; 85025; 99284

== ENCOUNTER 2022-12-25 22:49 | Emergency (ER) | payer OTHER ==
[~2022-12-25] VITALS: Ht 177.8 cm; Wt 87.8 kg
[2022-12-25 23:00] LABS: BASOPHILS % (AUTO) 0.3 % (0-1); EOSINOPHILS # (AUTO) 0.2 X10'3 (0-0.9); EOSINOPHILS % (AUTO) 2.1 % (0-6); HEMATOCRIT 46.4 % (42.0-52.0); HEMOGLOBIN 16.2 g/dl (14.0-17.9); LYMPHOCYTES # (AUTO) 2.1 X10'3 (1.1-4.8); MEAN CORPUSCULAR HGB CONC 34.8 g/dL (33.0-36.5); MEAN CORPUSCULAR VOLUME 83.4 FL (78-98); MEAN PLATELET VOLUME 7.6 FL (7.4-10.4); MONOCYTES # (AUTO) 0.7 X10'3 (0-0.9); MONOCYTES % (AUTO) 8.7 % (2-12); NEUTROPHILS # (AUTO) 4.8 X10'3 (1.8-7.7); NEUTROPHILS % (AUTO) 61.9 % (42-75); PLATELET COUNT 196 X10'3 (140-440); RED BLOOD COUNT 5.57 X10'6 (4.70-6.10); RED CELL DISTRIBUTION WIDTH 14.7 % (11.5-14.5); WHITE BLOOD COUNT 7.8 X10'3 (4.5-11.0)
[2022-12-25 23:01] VITALS: BP 116/73
[2022-12-25 23:14] LABS: ALANINE AMINOTRANSFERASE 30 U/L (12-78); ALBUMIN 3.8 G/DL (3.4-5.0); ALBUMIN/GLOBULIN RATIO 1.1 (1.1-1.5); ALKALINE PHOSPHATASE 78 IU/L (46-116); ANION GAP 10 (8-16); ASPARTATE AMINO TRANSFERASE 17 U/L (10-37); BILIRUBIN,TOTAL 0.2 MG/DL (0.1-1.0); BLOOD UREA NITROGEN 13 MG/DL (7-18); BUN/CREATININE RATIO 12.9 (5.4-32.0); CALCIUM 8.5 MG/DL (8.5-10.1); CHLORIDE 104 MMOL/L (99-107); CREATININE 1.01 MG/DL (0.60-1.10); GLUCOSE 147 MG/DL (70-104); POTASSIUM 3.4 MMOL/L (3.5-5.1); SODIUM 138 MMOL/L (135-145); TOTAL CARBON DIOXIDE 23.8 MMOL/L (24-32); TOTAL PROTEIN 7.2 G/DL (6.4-8.2); eGFR 83 ML/MIN
== END 2022-12-26 02:03 | disposition left against medical advice (07) ==
LOC: ER 22:50
DX: R07.9 Chest pain, unspecified (principal); Z53.21 Procedure and treatment not carried out due to patient leaving prior to being seen by health care provider
CPT/HCPCS: 36415; 71045; 80053; 83735; 83880; 84484; 85025; 93005

== ENCOUNTER 2023-01-21 22:11 | Emergency (ER) | payer OTHER ==
[~2023-01-21] VITALS: Ht 180.3 cm; Wt 87.3 kg
[2023-01-21 22:25] LABS: BASOPHILS % (AUTO) 0.4 % (0-1); EOSINOPHILS # (AUTO) 0.1 X10'3 (0-0.9); EOSINOPHILS % (AUTO) 1.6 % (0-6); HEMATOCRIT 46.6 % (42.0-52.0); HEMOGLOBIN 15.9 g/dl (14.0-17.9); LYMPHOCYTES # (AUTO) 2.4 X10'3 (1.1-4.8); LYMPHOCYTES % (AUTO) 26.6 % (21-51); MEAN CORPUSCULAR HEMOGLOBIN 28.6 PG (27.0-31.0); MEAN CORPUSCULAR HGB CONC 34.2 g/dL (33.0-36.5); MEAN CORPUSCULAR VOLUME 83.7 FL (78-98); MEAN PLATELET VOLUME 7.8 FL (7.4-10.4); MONOCYTES # (AUTO) 0.6 X10'3 (0-0.9); MONOCYTES % (AUTO) 6.5 % (2-12); NEUTROPHILS # (AUTO) 5.9 X10'3 (1.8-7.7); NEUTROPHILS % (AUTO) 64.9 % (42-75); PLATELET COUNT 203 X10'3 (140-440); RED BLOOD COUNT 5.58 X10'6 (4.70-6.10); RED CELL DISTRIBUTION WIDTH 13.9 % (11.5-14.5); WHITE BLOOD COUNT 9.1 X10'3 (4.5-11.0)
[2023-01-21 22:30] VITALS: BP 119/75
[2023-01-21 22:37] LABS: ALANINE AMINOTRANSFERASE 28 U/L (12-78); ALBUMIN 3.9 G/DL (3.4-5.0); ALBUMIN/GLOBULIN RATIO 1.1 (1.1-1.5); ALKALINE PHOSPHATASE 76 IU/L (46-116); ANION GAP 11 (8-16); ASPARTATE AMINO TRANSFERASE 18 U/L (10-37); BILIRUBIN,TOTAL 0.3 MG/DL (0.1-1.0); BLOOD UREA NITROGEN 17 MG/DL (7-18); BUN/CREATININE RATIO 17.5 (5.4-32.0); CALCIUM 9.1 MG/DL (8.5-10.1); CHLORIDE 104 MMOL/L (99-107); CREATININE 0.97 MG/DL (0.60-1.10); GLUCOSE 84 MG/DL (70-104); POTASSIUM 3.4 MMOL/L (3.5-5.1); SODIUM 141 MMOL/L (135-145); TOTAL CARBON DIOXIDE 26.1 MMOL/L (24-32); TOTAL PROTEIN 7.3 G/DL (6.4-8.2); eGFR 87 ML/MIN
[2023-01-21 22:46] LABS: MAGNESIUM 1.9 MG/DL (1.5-2.4)
== END 2023-01-22 02:43 | disposition left against medical advice (07) ==
LOC: ER 22:12
DX: R07.89 Other chest pain (principal); Z53.21 Procedure and treatment not carried out due to patient leaving prior to being seen by health care provider
CPT/HCPCS: 36415; 71045; 80053; 83735; 83880; 84484; 85025; 93005; 99281

== ENCOUNTER 2023-06-24 17:23 | Emergency (ER) | payer OTHER ==
[2023-06-24 19:11] LABS: BASOPHILS % (AUTO) 0.1 % (0-1); EOSINOPHILS # (AUTO) 0.1 X10'3 (0-0.9); EOSINOPHILS % (AUTO) 1.5 % (0-6); HEMATOCRIT 43.6 % (42.0-52.0); HEMOGLOBIN 14.9 g/dl (14.0-17.9); LYMPHOCYTES # (AUTO) 0.4 X10'3 (1.1-4.8); LYMPHOCYTES % (AUTO) 5.6 % (21-51); MEAN CORPUSCULAR HEMOGLOBIN 28.8 PG (27.0-31.0); MEAN CORPUSCULAR HGB CONC 34.3 g/dL (33.0-36.5); MEAN PLATELET VOLUME 8.5 FL (7.4-10.4); MONOCYTES # (AUTO) 0.7 X10'3 (0-0.9); MONOCYTES % (AUTO) 10.3 % (2-12); NEUTROPHILS # (AUTO) 5.4 X10'3 (1.8-7.7); NEUTROPHILS % (AUTO) 82.5 % (42-75); PLATELET COUNT 146 X10'3 (140-440); RED BLOOD COUNT 5.19 X10'6 (4.70-6.10); RED CELL DISTRIBUTION WIDTH 13.8 % (11.5-14.5); WHITE BLOOD COUNT 6.5 X10'3 (4.5-11.0)
[2023-06-24 19:20] LABS: ALANINE AMINOTRANSFERASE 38 U/L (12-78); ALBUMIN 3.6 G/DL (3.4-5.0); ALBUMIN/GLOBULIN RATIO 1.1 (1.1-1.5); ALKALINE PHOSPHATASE 67 IU/L (46-116); ANION GAP 12 (8-16); ASPARTATE AMINO TRANSFERASE 20 U/L (10-37); BILIRUBIN,TOTAL 0.2 MG/DL (0.1-1.0); BLOOD UREA NITROGEN 13 MG/DL (7-18); CALCIUM 9.1 MG/DL (8.5-10.1); CHLORIDE 103 MMOL/L (99-107); CREATININE 0.93 MG/DL (0.60-1.10); GLUCOSE 103 MG/DL (70-104); POTASSIUM 3.3 MMOL/L (3.5-5.1); SODIUM 138 MMOL/L (135-145); TOTAL CARBON DIOXIDE 22.9 MMOL/L (24-32); TOTAL PROTEIN 6.8 G/DL (6.4-8.2); eGFR > 90 ML/MIN
[2023-06-24 19:29] LABS: PRO BRAIN NATRIURETIC PEPTIDE 74 PG/ML (0-125)
== END 2023-06-24 20:38 | disposition left against medical advice (07) ==
LOC: ER 17:23
DX: R07.89 Other chest pain (principal); Z53.21 Procedure and treatment not carried out due to patient leaving prior to being seen by health care provider
CPT/HCPCS: 36415; 80053; 83880; 84484; 85025; 93005

== ENCOUNTER 2023-09-16 00:48 | Emergency (ER) | payer OTHER ==
[~2023-09-16] VITALS: Ht 177.8 cm; Wt 87.7 kg
[2023-09-16 01:01] LABS: BASOPHILS % (AUTO) 0.5 % (0-1); EOSINOPHILS # (AUTO) 0.3 X10'3 (0-0.9); EOSINOPHILS % (AUTO) 2.8 % (0-6); HEMATOCRIT 46.8 % (42.0-52.0); HEMOGLOBIN 16.4 g/dl (14.0-17.9); LYMPHOCYTES % (AUTO) 30.9 % (21-51); MEAN CORPUSCULAR VOLUME 82.8 FL (78-98); MEAN PLATELET VOLUME 7.5 FL (7.4-10.4); MONOCYTES # (AUTO) 0.6 X10'3 (0-0.9); MONOCYTES % (AUTO) 6.4 % (2-12); NEUTROPHILS # (AUTO) 5.8 X10'3 (1.8-7.7); NEUTROPHILS % (AUTO) 59.4 % (42-75); PLATELET COUNT 205 X10'3 (140-440); RED BLOOD COUNT 5.66 X10'6 (4.70-6.10); RED CELL DISTRIBUTION WIDTH 14.2 % (11.5-14.5); WHITE BLOOD COUNT 9.7 X10'3 (4.5-11.0)
[2023-09-16 01:05] VITALS: TEMP 97.8
[2023-09-16 01:15] LABS: ALANINE AMINOTRANSFERASE 41 U/L (12-78); ALBUMIN 3.9 G/DL (3.4-5.0); ALBUMIN/GLOBULIN RATIO 1.1 (1.1-1.5); ALKALINE PHOSPHATASE 74 IU/L (46-116); ANION GAP 11 (8-16); ASPARTATE AMINO TRANSFERASE 21 U/L (10-37); BILIRUBIN,TOTAL 0.3 MG/DL (0.1-1.0); BLOOD UREA NITROGEN 11 MG/DL (7-18); BUN/CREATININE RATIO 10.3 (10.0-20.0); CHLORIDE 101 MMOL/L (99-107); CREATININE 1.07 MG/DL (0.60-1.10); GLUCOSE 101 MG/DL (70-104); POTASSIUM 3.5 MMOL/L (3.5-5.1); SODIUM 138 MMOL/L (135-145); TOTAL PROTEIN 7.5 G/DL (6.4-8.2); eCRCL 97 ML/MIN; eGFR 77 ML/MIN
[2023-09-16 01:31] LABS: PRO BRAIN NATRIURETIC PEPTIDE < 30 PG/ML (0-125)
[2023-09-16 03:00] VITALS: BP 120/83; PULSE 77; RESP 15; O2SAT 95
== END 2023-09-16 03:55 | disposition home or self-care (01) ==
LOC: ER 00:49
DX: R07.9 Chest pain, unspecified (principal); M79.602 Pain in left arm; I10 Essential (primary) hypertension; F41.9 Anxiety disorder, unspecified; Z88.5 Allergy status to narcotic agent; Z88.8 Allergy status to other drugs, medicaments and biological substances
CPT/HCPCS: 36415; 71045; 80053; 83880; 84484; 85025; 93005; 99285

== ENCOUNTER 2023-12-24 02:24 | Emergency (ER) | payer OTHER ==
[~2023-12-24] VITALS: Ht 177.8 cm; Wt 87.0 kg
[2023-12-24 02:38] VITALS: TEMP 98.9
[2023-12-24 03:13] LABS: BASOPHILS % (AUTO) 0 % (0-1); EOSINOPHILS # (AUTO) 0.2 X10'3 (0-0.9); HEMATOCRIT 45.5 % (42.0-52.0); HEMOGLOBIN 15.7 g/dl (14.0-17.9); LYMPHOCYTES # (AUTO) 2.1 X10'3 (1.1-4.8); LYMPHOCYTES % (AUTO) 23.6 % (21-51); MEAN CORPUSCULAR HEMOGLOBIN 28.9 PG (27.0-31.0); MEAN CORPUSCULAR HGB CONC 34.6 g/dL (33.0-36.5); MEAN CORPUSCULAR VOLUME 83.4 FL (78-98); MEAN PLATELET VOLUME 7.7 FL (7.4-10.4); MONOCYTES # (AUTO) 0.7 X10'3 (0-0.9); NEUTROPHILS # (AUTO) 5.9 X10'3 (1.8-7.7); NEUTROPHILS % (AUTO) 66.4 % (42-75); PLATELET COUNT 187 X10'3 (140-440); RED BLOOD COUNT 5.45 X10'6 (4.70-6.10); RED CELL DISTRIBUTION WIDTH 13.6 % (11.5-14.5); WHITE BLOOD COUNT 8.9 X10'3 (4.5-11.0)
[2023-12-24 03:38] LABS: ALANINE AMINOTRANSFERASE 46 U/L (12-78); ALBUMIN 3.5 G/DL (3.4-5.0); ALBUMIN/GLOBULIN RATIO 0.9 (1.1-1.5); ALKALINE PHOSPHATASE 78 IU/L (46-116); ANION GAP 11 (8-16); ASPARTATE AMINO TRANSFERASE 23 U/L (10-37); BILIRUBIN,TOTAL 0.2 MG/DL (0.1-1.0); BLOOD UREA NITROGEN 13 MG/DL (7-18); BUN/CREATININE RATIO 13.3 (10.0-20.0); CALCIUM 8.5 MG/DL (8.5-10.1); CHLORIDE 106 MMOL/L (99-107); CREATININE 0.98 MG/DL (0.60-1.10); GLUCOSE 127 MG/DL (70-104); POTASSIUM 3.9 MMOL/L (3.5-5.1); SODIUM 141 MMOL/L (135-145); TOTAL CARBON DIOXIDE 23.7 MMOL/L (24-32); TOTAL PROTEIN 7.2 G/DL (6.4-8.2); eCRCL 106 ML/MIN; eGFR 86 ML/MIN
[2023-12-24] MEDS: metoclopramide 5 mg/ml inj IV ONE (03:47)
[2023-12-24] MEDS: LORazepam 2 mg/ml vial IV ONE (03:47)
[2023-12-24 03:59] VITALS: BP 115/76; PULSE 89; RESP 20; O2SAT 98
[2023-12-24 04:27] LABS: PRO BRAIN NATRIURETIC PEPTIDE < 30 PG/ML (0-125)
== END 2023-12-24 04:02 | disposition home or self-care (01) ==
LOC: ER 02:25
DX: F41.9 Anxiety disorder, unspecified (principal); I10 Essential (primary) hypertension; K21.9 Gastro-esophageal reflux disease without esophagitis; Z88.8 Allergy status to other drugs, medicaments and biological substances; Z88.1 Allergy status to other antibiotic agents; Z88.5 Allergy status to narcotic agent; Z79.899 Other long term (current) drug therapy
CPT/HCPCS: 36415; 71045; 80053; 83880; 84484; 85025; 93005; 96374; 96375; 99285; J2060; J2765

== ENCOUNTER 2024-01-11 18:54 | Emergency (ER) | payer OTHER ==
[~2024-01-11] VITALS: Ht 177.8 cm; Wt 87.7 kg
[2024-01-11 19:09] VITALS: BP 130/82; PULSE 65; RESP 18; TEMP 98.2; O2SAT 99
[2024-01-11 19:35] LABS: BASOPHILS % (AUTO) 0.3 % (0-1); EOSINOPHILS # (AUTO) 0.2 X10'3 (0-0.9); EOSINOPHILS % (AUTO) 2.1 % (0-6); HEMATOCRIT 46.3 % (42.0-52.0); HEMOGLOBIN 16.1 g/dl (14.0-17.9); LYMPHOCYTES # (AUTO) 2.1 X10'3 (1.1-4.8); LYMPHOCYTES % (AUTO) 24.8 % (21-51); MEAN CORPUSCULAR HEMOGLOBIN 28.9 PG (27.0-31.0); MEAN CORPUSCULAR HGB CONC 34.7 g/dL (33.0-36.5); MEAN CORPUSCULAR VOLUME 83.2 FL (78-98); MEAN PLATELET VOLUME 8.1 FL (7.4-10.4); MONOCYTES # (AUTO) 0.6 X10'3 (0-0.9); MONOCYTES % (AUTO) 7.1 % (2-12); NEUTROPHILS # (AUTO) 5.5 X10'3 (1.8-7.7); NEUTROPHILS % (AUTO) 65.7 % (42-75); PLATELET COUNT 228 X10'3 (140-440); RED BLOOD COUNT 5.57 X10'6 (4.70-6.10); RED CELL DISTRIBUTION WIDTH 13.7 % (11.5-14.5); WHITE BLOOD COUNT 8.4 X10'3 (4.5-11.0)
[2024-01-11 19:42] LABS: ALANINE AMINOTRANSFERASE 39 U/L (12-78); ALBUMIN 3.9 G/DL (3.4-5.0); ALBUMIN/GLOBULIN RATIO 1.1 (1.1-1.5); ALKALINE PHOSPHATASE 68 IU/L (46-116); ANION GAP 12 (8-16); ASPARTATE AMINO TRANSFERASE 28 U/L (10-37); BILIRUBIN,TOTAL 0.1 MG/DL (0.1-1.0); BLOOD UREA NITROGEN 13 MG/DL (7-18); BUN/CREATININE RATIO 13.1 (10.0-20.0); CALCIUM 8.6 MG/DL (8.5-10.1); CHLORIDE 106 MMOL/L (99-107); CREATININE 0.99 MG/DL (0.60-1.10); GLUCOSE 89 MG/DL (70-104); LIPASE 24 U/L (16-77); SODIUM 143 MMOL/L (135-145); TOTAL CARBON DIOXIDE 24.7 MMOL/L (24-32); TOTAL PROTEIN 7.4 G/DL (6.4-8.2); eCRCL 104 ML/MIN; eGFR 85 ML/MIN
[2024-01-11 19:51] LABS: POTASSIUM 3.9 MMOL/L (3.5-5.1)
[2024-01-11 20:30] LABS: BILIRUBIN,URINE NEGATIVE (Neg); CLARITY,URINE CLEAR (Clear); COLOR,URINE YELLOW (Yellow); GLUCOSE, URINE NEGATIVE (Neg); KETONES,URINE NEGATIVE (Neg); LEUKOCYTE ESTERASE ,URINE NEGATIVE (Neg); NITRITES, URINE NEGATIVE (Neg); OCCULT BLOOD,URINE NEGATIVE (Neg); PROTEIN,URINE NEGATIVE (Neg); UROBILINOGEN,URINE 0.2 E.U/dL (0.2-1.0)
[2024-01-11 20:32] LABS: UA COLLECTION TYPE NON-SPECIFIED
== END 2024-01-11 21:38 | disposition home or self-care (01) ==
LOC: ER 18:55
DX: R07.9 Chest pain, unspecified (principal); K21.9 Gastro-esophageal reflux disease without esophagitis; G89.29 Other chronic pain; I10 Essential (primary) hypertension; F31.9 Bipolar disorder, unspecified; Z88.5 Allergy status to narcotic agent; Z88.1 Allergy status to other antibiotic agents; Z79.899 Other long term (current) drug therapy
CPT/HCPCS: 36415; 71045; 80053; 81003; 83690; 85025; 93005; 99285

== ENCOUNTER 2024-11-27 20:00 | Emergency (ER) | payer OTHER ==
[~2024-11-27] VITALS: Ht 177.8 cm; Wt 103.1 kg
[2024-11-27 20:43] LABS: BASOPHILS % (AUTO) 0.5 % (0-1); EOSINOPHILS # (AUTO) 0.2 X10'3 (0-0.9); EOSINOPHILS % (AUTO) 2.2 % (0-6); HEMATOCRIT 47.2 % (42.0-52.0); LYMPHOCYTES # (AUTO) 1.9 X10'3 (1.1-4.8); LYMPHOCYTES % (AUTO) 24.3 % (21-51); MEAN CORPUSCULAR HEMOGLOBIN 28.1 PG (27.0-31.0); MEAN CORPUSCULAR VOLUME 82.8 FL (78-98); MEAN PLATELET VOLUME 7.8 FL (7.4-10.4); MONOCYTES # (AUTO) 0.6 X10'3 (0-0.9); MONOCYTES % (AUTO) 7.4 % (2-12); NEUTROPHILS % (AUTO) 65.6 % (42-75); PLATELET COUNT 220 X10'3 (140-440); RED CELL DISTRIBUTION WIDTH 13.5 % (11.5-14.5); WHITE BLOOD COUNT 7.6 X10'3 (4.5-11.0)
[2024-11-27 20:59] LABS: ALANINE AMINOTRANSFERASE 71 U/L (12-78); ALBUMIN/GLOBULIN RATIO 1.2 (1.1-1.5); ALKALINE PHOSPHATASE 88 IU/L (46-116); ANION GAP 11 (8-16); ASPARTATE AMINO TRANSFERASE 22 U/L (10-37); BILIRUBIN,TOTAL 0.2 MG/DL (0.1-1.0); BLOOD UREA NITROGEN 15 MG/DL (7-18); BUN/CREATININE RATIO 13.8 (10.0-20.0); CALCIUM 9.1 MG/DL (8.5-10.1); CHLORIDE 104 MMOL/L (99-107); CREATININE 1.09 MG/DL (0.60-1.10); GLUCOSE 111 MG/DL (70-104); POTASSIUM 3.5 MMOL/L (3.5-5.1); SODIUM 139 MMOL/L (135-145); TOTAL CARBON DIOXIDE 24.5 MMOL/L (24-32); TOTAL PROTEIN 7.4 G/DL (6.4-8.2); eCRCL 94 ML/MIN; eGFR 75 ML/MIN
[2024-11-27 21:11] LABS: PRO BRAIN NATRIURETIC PEPTIDE < 30 PG/ML (0-125)
[2024-11-27 23:15] VITALS: BP 133/96; PULSE 73; RESP 16; TEMP 98.2; O2SAT 98
== END 2024-11-27 23:20 | disposition home or self-care (01) ==
LOC: ER 20:01
DX: T59.811A Toxic effect of smoke, accidental (unintentional), initial encounter (principal); R06.02 Shortness of breath; F41.9 Anxiety disorder, unspecified; I10 Essential (primary) hypertension; K21.9 Gastro-esophageal reflux disease without esophagitis; G89.29 Other chronic pain; F32.A Depression, unspecified; F41.0 Panic disorder [episodic paroxysmal anxiety]; Z72.89 Other problems related to lifestyle; Z88.1 Allergy status to other antibiotic agents; Z88.5 Allergy status to narcotic agent; Z88.8 Allergy status to other drugs, medicaments and biological substances; Z79.899 Other long term (current) drug therapy; Y92.89 Other specified places as the place of occurrence of the external cause
CPT/HCPCS: 36415; 71045; 80053; 83880; 84484; 85025; 93005; 99285

== ENCOUNTER 2025-01-16 21:51 | Emergency (ER) | payer OTHER ==
[~2025-01-16] VITALS: Ht 177.8 cm; Wt 85.6 kg
[2025-01-16 21:56] VITALS: BP 156/78; PULSE 81; RESP 15; TEMP 96.8; O2SAT 98
[2025-01-16] MEDS: ketorolac trometh 15mg/ml vial 15 MG/ML ML IM ONE (22:24)
[2025-01-16] MEDS: LORazepam 2 mg/ml vial IM ONE (22:25)
[2025-01-16] MEDS: acetaminophen 325mg tablet PO ONE (22:25)
[2025-01-16] MEDS: ondansetron 4mg rapidly disintigrating tab PO ONE (22:25)
== END 2025-01-16 23:11 | disposition home or self-care (01) ==
LOC: ER 21:53
DX: R07.89 Other chest pain (principal); M94.0 Chondrocostal junction syndrome [Tietze]; K21.9 Gastro-esophageal reflux disease without esophagitis; I10 Essential (primary) hypertension; F41.9 Anxiety disorder, unspecified; Z88.5 Allergy status to narcotic agent; Z88.1 Allergy status to other antibiotic agents
CPT/HCPCS: 71045; 93005; 96372; 99284; J1885; J2060

== ENCOUNTER 2025-08-08 00:47 | Emergency (ER) | payer OTHER ==
[~2025-08-08] VITALS: Ht 177.8 cm; Wt 98.6 kg
[2025-08-08 00:53] VITALS: TEMP 98.5
--- NOTE | 2025-08-08 01:07 | ELECTROCARDIOGRAPH REPORT ---
[facility] Test Date: 2025-08-08 Test Time: 01:05:09 Pat Name: CAYETANO BAZAN Department: EMERGENCY ROOM Room: Gender: M [employer]: PM : 1985 Requested By: LIU HOUSTON Order Number: [id number] Reading MD: Measurements Intervals [place] Rate: 97 P: 47 WA: 125 QRS: 79 QRSD: 106 T: 83 QT: 347 QTc: 441 Interpretive Statements Sinus rhythm Please click the below link to view image of tracing.
[2025-08-08 01:20] LABS: MEAN PLATELET VOLUME 7.8 FL (7.4-10.4); RED CELL DISTRIBUTION WIDTH 13.6 % (11.5-14.5)
--- NOTE | 2025-08-08 01:30 | RADIOLOGY REPORT ---
CHEST RADIOGRAPH Indication: CP Technique: Single frontal view of the chest was obtained COMPARISON: DI CHEST,SINGLE VIEW on DOS: 01/16/25, DI CHEST,SINGLE VIEW on DOS: 11/27/24, DI CHEST,SINGLE VIEW on DOS: 10/07/24, DI CHEST,SINGLE VIEW on DOS: 01/11/24, DI CHEST,SINGLE VIEW on DOS: 12/24/23 FINDINGS: Lungs and pleural spaces are clear. Cardiac silhouette and zachary are within normal limits. Bones and soft tissues demonstrate no significant abnormality. IMPRESSION: 1. No acute disease.
[2025-08-08 01:40] LABS: CREATININE 0.90 MG/DL (0.60-1.10); PRO BRAIN NATRIURETIC PEPTIDE < 30 PG/ML (0-125); TOTAL CARBON DIOXIDE 23.0 MMOL/L (24-32); eCRCL 113 ML/MIN; eGFR > 90 ML/MIN
--- NOTE | 2025-08-08 02:10 | Physician Documentation ---
History of Present Illness General Chief Complaint: Anxiety Stated Complaint: ANXIETY Time Seen by MD: 02:08 Primary Medical Doctor: MARCE Mode of Arrival: POV History of Present Illness Initial Comments Patient is a 40-year-old male who presents to the emergency department with a complaint of anxiety palpitations carpal pedal spasms and chest pains that began around 2100 day prior to my exam. The patient states he took 3.5 mg of Ativan at home with some improvement. The patient states his heart rate was elevated and he has had whole-body pains recently that were worse during this episode. Patient had no known cardiac history patient denies any fevers chills nausea or vomiting. Medication Reconciliation Allergies: Coded Allergies: clonidine (Verified Allergy, Severe, anxiety attack, 01/16/25) doxycycline (Verified Allergy, Intermediate, nausea, hives, 01/16/25) clavulanic acid (Verified Allergy, Unknown, 01/16/25) morphine (Verified Allergy, Unknown, hives, 01/16/25) Scheduled Albuterol Sulfate (Ventolin Hfa), 2 PUFFS INH Q4HPRN Guaifenesin (Mucinex), 1 TAB PO Q12H Lorazepam (Ativan), 2 MG IM ONCE Potassium Chloride* (K-Dur*), 1 TAB PO BID Pseudoephedrine Hcl (SUDAFED tablet), 1 TAB PO Q4H Scheduled PRN Albuterol Sulfate (Proair Hfa), 2 PUFFS IH Q4H PRN for SOB or wheezing Metoclopramide HCl (Reglan), 1 TABLET PO QID PRN for nausea and headache Past Medical History Past Medical History: *ENGINEER TECHNICIAN*, Hypertension, *GI/HEPATOBILIARY*, GERD, Chronic Pain, *PSYCH*, Anxiety, Depression, Panic Disorder Past Surgical History: noncontributory Other Past Family History: NONCONTRIBUTORY Smoking: Cigarettes Alcohol Use: Occasionally Drug Use: none Lives with: S/O Lives In: Home Occupation: employed Review of Systems All Other Systems at this time: Reviewed and Negative Physical Exam Physical Exam Vital Signs: Temperature: 98.5, Source: Oral, Heart Rate: 100, Respiratory Rate: 16, BP: 119/83, Pulse Oximetry: 99, Weight: 98.640 Oxygen Flow Rate: 0 Physical Exam VITALS: Reviewed and as above. GENERAL: Alert, no apparent distress. HEENT: Normocephalic, atraumatic, PERRL, EOMI, dry mucosa, no erythema RESPIRATORY: Lungs clear, normal breath sounds, no respiratory distress. CHEST: No accessory muscle use, no retractions CV: Regular rate, rhythm, no edema, no murmur, No: JVD GI: Soft, non-tender, bowels sounds present, no rebound, guarding, or rigidity BACK: No CVA tenderness, or swelling MUSCULOSKELETAL: No deformities, no edema SKIN: Warm and dry, no rash NEURO: Oriented x4, No motor or sensory deficit PSYCH: Normal mood and affect, no agitation Progress Results/Orders Results/Orders Orders - OHLIU MCMANUS MD Chest,Single View (08/08/25 01:01) Monitor (08/08/25 01:01) Saline Lock (08/08/25 01:01) Oxygen (08/08/25 01:01) Completed Orders - LIU CASSIDY MD Chest,Single View (08/08/25 01:01) Cbc/Diff (08/08/25 01:01) BMP (08/08/25 01:01) PBNP (08/08/25 01:01) Electrocardiogram (08/08/25 01:01) Hs Troponin I W Calculations (08/08/25 01:01) Lorazepam Tablet (Ativan Tablet) (08/08/25 02:15) Vital Signs 08/08/25 08/08/25 08/08/25 08/08/25 00:53 01:20 02:24 02:26 Temp 98.5 Pulse 100 89 Resp 14 16 16 19 B/P (MAP) 119/83 113/83 (93) Pulse Ox 99 95 O2 Flow Rate 0 0 Laboratory Tests Test 08/08/25 01:08 White Blood Count 9.5 Red Blood Count 5.72 Hemoglobin 15.9 Hematocrit 45.8 Mean Corpuscular Volume 80.0 Mean Corpuscular Hemoglobin 27.9 Mean Corpuscular Hemoglobin Concent 34.8 Red Cell Distribution Width 13.6 Platelet Count 199 Mean Platelet Volume 7.8 Neutrophils (%) (Auto) 72.9 Lymphocytes (%) (Auto) 20.6 L Monocytes (%) (Auto) 4.6 Eosinophils (%) (Auto) 1.6 Basophils (%) (Auto) 0.3 Neutrophils # (Auto) 6.9 Lymphocytes # (Auto) 2.0 Monocytes # (Auto) 0.4 Eosinophils # (Auto) 0.2 Basophils # (Auto) 0.0 CBC Comment Sodium Level 136 Potassium Level 3.5 Chloride Level 103 Carbon Dioxide Level 23.0 L Anion Gap 10 Blood Urea Nitrogen 15 Creatinine 0.90 Estimated GFR/1.73 m2 > 90 BUN/Creatinine Ratio 16.7 Glucose Level 167 H Calcium Level 8.8 Troponin I High Sensitivity 4 Pro-B-Type Natriuretic Peptide < 30 Albumin 3.5 Chemistry Comments EKG/XRAY/CT/US/VASC/MRI Chest X-Ray : Additional Comments Patient: CAYETANO BAZAN Medical Record: [id number] [facility] : 1985, Age: 40 Sex: Male Location: ER Patient Status: [facility] ER Service Date/Time: 08/08/25/ 010 Ordering Physician: LIU CASSIDY MD Exam: CHEST,SINGLE VIEW CHEST RADIOGRAPH Indication: CP Technique: Single frontal view of the chest was obtained COMPARISON: DI CHEST,SINGLE VIEW on DOS: 01/16/25, DI CHEST,SINGLE VIEW on DOS: 11/27/24, DI CHEST,SINGLE VIEW on DOS: 10/07/24, DI CHEST,SINGLE VIEW on DOS: 01/11/24, DI CHEST,SINGLE VIEW on DOS: 12/24/23 FINDINGS: Lungs and pleural spaces are clear. Cardiac silhouette and zachary are within normal limits. Bones and soft tissues demonstrate no significant abnormality. IMPRESSION: 1. No acute disease. Electronically Signed by:RIMMA RODARTE MD Date & Time: 08/08/25 012 Dictated by: RIMMA RODARTE MD Dictation date and time: 08/08/25 012 Primary Care Provider: NO PRIMARY CARE PROVIDER cc: LIU CASSIDY MD ~ Medical Decision Making Findings EKG demonstrates a sinus rhythm with a normal axis rate of [address] elevation or no ST depression time of interpretation was 010. The patient has a long history of anxiety. The patient presented with a his typical symptoms for anxiety which included chest pain. The patient's EKG was interpreted by me as being nonischemic appearing. I have also interpreted as hall monitor as being a sinus rhythm. His pulse oximetry was interpreted by me as normal and adequate. The patient received a dose of Ativan he is hemodynamically stable and no new medical condition was identified on exam the patient will be discharged with instructions to return for worsening of his symptoms. Prior hospitalizations Departure Disposition: HOME / SELF CARE / HOMELESS Impression: Primary Impression: Anxiety Discharge Instructions: Panic Attack Referrals: NO PRIMARY CARE PROVIDER (PCP) Signature Scribe Signature: no scribe Attestation: The note accurately reflects work and decisions made by me.Liu Cassidy MD 08/10/25 09:52 LIU CASSIDY MD Aug 08, 2025 02:10
[2025-08-08 02:26] VITALS: BP 113/83; PULSE 89; RESP 19; O2SAT 95
== END 2025-08-08 02:29 | disposition home or self-care (01) ==
LOC: ER 00:48
DX: F41.9 Anxiety disorder, unspecified (principal); G89.29 Other chronic pain; I10 Essential (primary) hypertension; K21.9 Gastro-esophageal reflux disease without esophagitis; F32.A Depression, unspecified; F17.210 Nicotine dependence, cigarettes, uncomplicated; Z88.8 Allergy status to other drugs, medicaments and biological substances; Z88.1 Allergy status to other antibiotic agents; Z88.5 Allergy status to narcotic agent; Z79.899 Other long term (current) drug therapy; Z72.89 Other problems related to lifestyle
CPT/HCPCS: 36415; 71045; 80048; 83880; 84484; 85025; 93005; 99285

== ENCOUNTER 2025-09-05 01:26 | Emergency (ER) | payer OTHER ==
[~2025-09-05] VITALS: Ht 177.8 cm; Wt 100.0 kg
[2025-09-05 01:27] VITALS: BP 140/91; TEMP 97.2; O2SAT 99
--- NOTE | 2025-09-05 01:58 | Physician Documentation ---
History of Present Illness ~ Chief Complaint: Foot pain Stated Complaint: LEG PAIN Primary Medical Doctor: MARCE DOBBS Patient was seen at [facility] on the and diagnosed with possible partial achilles tendon injury of LLE. Foot felt cold, nurse line told him to come in to be seen. Denies new pain to the foot. Tetanus witin 5 years: Yes Medication Reconciliation Allergies: Coded Allergies: clonidine (Verified Allergy, Severe, anxiety attack, 09/05/25) doxycycline (Verified Allergy, Intermediate, nausea, hives, 09/05/25) clavulanic acid (Verified Allergy, Unknown, 09/05/25) morphine (Verified Allergy, Unknown, hives, 09/05/25) Scheduled Albuterol Sulfate (Ventolin Hfa), 2 PUFFS INH Q4HPRN Guaifenesin (Mucinex), 1 TAB PO Q12H Lorazepam (Ativan), 2 MG IM ONCE Potassium Chloride* (K-Dur*), 1 TAB PO BID Pseudoephedrine Hcl (SUDAFED tablet), 1 TAB PO Q4H Scheduled PRN Albuterol Sulfate (Proair Hfa), 2 PUFFS IH Q4H PRN for SOB or wheezing Metoclopramide HCl (Reglan), 1 TABLET PO QID PRN for nausea and headache Past Medical History Past Medical History: *DRIVER MANAGER*, Hypertension, *GI/HEPATOBILIARY*, GERD, Chronic Pain, *PSYCH*, Anxiety, Depression, Panic Disorder Past Surgical History: noncontributory Other Past Family History: NONCONTRIBUTORY Alcohol Use: Occasionally Drug Use: none Lives with: S/O Lives In: Home Occupation: employed Review of Systems All Other Systems at this time: Reviewed and Negative Physical Exam Vital Signs: RN Vital Signs have been reviewed: Yes, Temperature: 97.2, Heart Rate: 94, Respiratory Rate: 18, BP: 140/91, Pulse Oximetry: 99, Weight: 100.000 Physical Exam HEENT: PERRL, moist oral mucosa, EOMI Pulmonary: No respiratory distress MSK: no deformity; + palpable DP pulse to affected limb which is also warm and well-perfused Skin: w/d/i, no rash Neuro: alert, nonfocal Psych: normal affect Progress Results/Orders Results/Orders Vital Signs 09/05/25 01:27 Temp 97.2 Pulse 94 Resp 18 B/P (MAP) 140/91 Pulse Ox 99 Medical Decision Making Additional information obtaine: N/A Findings 40 year old male directed here for unknown reasons because his foot "felt cold." Limb is fine. Return precautions. General Diff Dx:Considerations: Include: Other Knee Diff Dx:Considerations: Include: Other Ankle Diff Dx:Considerations: Include: Other Foot Diff Dx:Considerations: Include: Other Toe Diff Dx:Considerations: Include: Other Additional Comment Ddsx = limb ischemia, fracture, sprain Departure Disposition: 01 HOME / SELF CARE / HOMELESS Impression: Primary Impression: Achilles tendon injury Condition: Stable Discharge Instructions: Strain, Muscle Referrals: NO PRIMARY CARE PROVIDER (PCP) Education Educated: Patient Educated regarding: diagnosis, treatment, prognosis, need for follow up Signature Scribe Signature: . Attestation: . CONSTANTINO LAY MD Sep 05, 2025 01:58
[2025-09-05 02:09] VITALS: PULSE 90; RESP 20
== END 2025-09-05 02:10 | disposition home or self-care (01) ==
LOC: ER 01:26
DX: S86.092A Other specified injury of left Achilles tendon, initial encounter (principal); I10 Essential (primary) hypertension; G89.29 Other chronic pain; K21.9 Gastro-esophageal reflux disease without esophagitis; F41.9 Anxiety disorder, unspecified; F32.A Depression, unspecified; Z88.1 Allergy status to other antibiotic agents; Z88.5 Allergy status to narcotic agent; Z79.899 Other long term (current) drug therapy; Z72.89 Other problems related to lifestyle; X58.XXXA Exposure to other specified factors, initial encounter; Y93.89 Activity, other specified; Y92.89 Other specified places as the place of occurrence of the external cause; Y99.8 Other external cause status
CPT/HCPCS: 99282